=== PATIENT | male | born 1950 | race Asian ===

== ENCOUNTER 2019-07-30 16:53 | Emergency (ER) | payer OTHER ==
[~2019-07-30] VITALS: Ht 175.3 cm; Wt 78.9 kg
[~2019-07-30 16:53] MED LIST: ABILIFY MAINTE400 MG IM; AMANTADINE100 MG PO; ARIPIPRAZOLE15 MG PO; ASEN5SUB2 SL; ATIVAN2 M1 PO; ATIVAN2 MG PO; BENZ1TAB43 PO; BENZONATATE200 MG PO; BENZTROPINE0.5 MG PO; BISACODYL5 M1 PO; BUSP15TAB2 PO; BUSP5TAB2 PO; BUSPIRONE10 MG PO; BUSPIRONE15 MG PO; CALCIUM600 M1 OR; CALCIUM600 M1 PO; DAILY VITE PO; DIAZ5TAB20 PO; DIPH25CA90 PO; DIVA250T2 PO; DIVA500T2 OR; DIVA500T2 PO; DOCU100C10 PO; DONE5TAB PO; ENEMA READY-TO-1 ENE PR; ESCI10TA PO; ESCITALOPRAM5 MG PO; GENTLE LAXAT5 MG PO; GEODON60 MG PO; HALO10TA5 PO; HALO50IN4 IM; HALO5INJ3 IM; HALO5TAB10 PO; LAMICTAL25 MG PO; LEVO0.0723 PO; LEVO0.1T6 PO; LEVO0.2T35 PO; LEXAPRO10 MG PO; LEXAPRO20 MG; LORA1TAB17 PO; LORA2INJ21 INJ; LORAZEPAM2 MG/ML IM; MEMA10TA2 PO; MEMANTINE HCL10 MG PO; MULTI VITAMIN D1 TAB PO; NAC600 M1 PO; OLAN10INJ PO; OLANZAPINE10 M2 PO; OLANZAPINE20 M1 OR; OMEP40CA PO; OXCARBAZEPIN600 MG PO; PRAZ1CAP16 PO; PROPAFENONE150 MG PO; PROTEIN SUPPLEMENT PO; QUET100T2 PO; QUET300T PO; RISP0.25 PO; RISP1TAB PO; RISP2TAB2 PO; RISP50IN IM; RISPERDAL3 MG PO; ROPINIROLE0.5 MG PO; TRAM50TA PO; TRAZ50TA36 PO; TRILEPTAL150 MG PO; TRILEPTAL300 MG OR; TRILEPTAL300 MG PO; VITAMIN D-3400 UNIT PO; VITAMIN D400 UNIT OR; ZIPR20IN IM; ZIPR80CA PO; [UNRECOGNIZED DRUG - CODE] PO; [UNRECOGNIZED DRUG - OTHER] IJ; [UNRECOGNIZED DRUG - OTHER] RE
[2019-07-30 17:02] VITALS: BP 145/88; TEMP 98.4
[2019-07-30 17:36] LABS: PLATELET COUNT 224 K/uL (142-355)
[2019-07-30 17:39] LABS: POTASSIUM 3.7 mmol/L (3.6-5.2)
[2019-07-31] MEDS ORDERED: CLOZAPINE100 MG PO ×2 (01:25→01:37)
[2019-07-31] MEDS ORDERED: ESCITALOPRAM10 MG PO (01:27)
[2019-07-31] MEDS ORDERED: LEVO-T125 MCG PO ×2 (01:28→01:43)
[2019-07-31] MEDS ORDERED: TRAZ50TA36 PO (01:30)
[2019-07-31] MEDS ORDERED: DRONABINOL5 MG PO (01:31)
[2019-07-31] MEDS ORDERED: AMLODIPINE BESYLATE PO (01:32)
[2019-07-31] MEDS ORDERED: EQ LAXATIVE8.6 MG PO (01:35)
[2019-07-31] MEDS ORDERED: LEXAPRO10 MG PO (01:40)
[2019-08-02] MEDS ORDERED: CLOZAPINE ODT150 MG PO (12:38)
== END 2019-07-30 18:53 | disposition other institution (70) ==
LOC: ED 16:53
PROVIDERS: Family Medicine
DX: R45.850 Homicidal ideations (principal); R46.89 Other symptoms and signs involving appearance and behavior; I10 Essential (primary) hypertension; Z04.6 Encounter for general psychiatric examination, requested by authority
CPT/HCPCS: 80053; 81000; 85027; 93005; 99285

== ENCOUNTER 2021-08-22 19:48 | Emergency (ER) | payer OTHER ==
[~2021-08-22] VITALS: Ht 170.2 cm; Wt 82.1 kg
[~2021-08-22 19:48] MED LIST changes: +AMLODIPINE BESYLATE PO; +CHOL100034 PO; +CLOZ100T PO; +CLOZAPINE ODT150 MG PO; +CLOZAPINE100 MG PO; +CYAN10009 IM; +DRONABINOL5 MG PO; +EQ LAXATIVE8.6 MG PO; +ESCITALOPRAM10 MG PO; +LEVO-T125 MCG PO; +OLANZAPINE5 MG PO; +OXCARBAZEPIN300 MG PO
[2021-08-22 20:12] LABS: PLATELET COUNT 246 K/uL (142-355)
[2021-08-22 20:18] LABS: POTASSIUM 3.8 mmol/L (3.6-5.2)
[2021-08-22 20:45] VITALS: BP 158/74; TEMP 98.2
[2021-08-23] MEDS ORDERED: TYLENOL325 MG PO (08:30)
[2021-08-23] MEDS ORDERED: ARIPIPRAZOLE10 MG PO (08:33)
[2021-08-23] MEDS ORDERED: BENZ1TAB43 PO (08:34)
[2021-08-23] MEDS ORDERED: DOK100 MG PO (08:35)
[2021-08-23] MEDS ORDERED: DONEPEZIL HYDROC5 MG PO (08:36)
[2021-08-23] MEDS ORDERED: FE TABS325 MG PO (08:38)
[2021-08-23] MEDS ORDERED: MELATONIN5 M4 PO (08:39)
[2021-08-23] MEDS ORDERED: ESCITALOPRAM5 MG PO (08:39)
[2021-08-23] MEDS ORDERED: MAGNSUS68 PO (08:40)
[2021-08-23] MEDS ORDERED: MIRALAX17 GM PO (08:41)
[2021-08-23] MEDS ORDERED: OXCARBAZEPIN300 MG PO (08:42)
[2021-08-23] MEDS ORDERED: GNP SENNA LAX8.6 MG PO (08:43)
[2021-08-23] MEDS ORDERED: VITAMIN C500 M7 PO (08:45)
== END 2021-08-22 20:45 | disposition still patient (30) ==
LOC: ED 19:48
PROVIDERS: Hospitalist
DX: F25.8 Other schizoaffective disorders (principal); F03.91 Unspecified dementia, unspecified severity, with behavioral disturbance; Z11.52 Encounter for screening for COVID-19; Z04.6 Encounter for general psychiatric examination, requested by authority
CPT/HCPCS: 36415; 80053; 85027; 87635; 93005; 96372; 99283; J1200; J1940; J3486; U0003

== ENCOUNTER 2021-08-24 03:55 | Emergency (ER) | payer OTHER ==
[~2021-08-24] VITALS: Ht 170.2 cm; Wt 79.4 kg
[~2021-08-24 03:55] MED LIST changes: +ARIPIPRAZOLE10 MG PO; +DOK100 MG PO; +DONEPEZIL HYDROC5 MG PO; +FE TABS325 MG PO; +GNP SENNA LAX8.6 MG PO; +MAGNSUS68 PO; +MELATONIN5 M4 PO; +MIRALAX17 GM PO; +TYLENOL325 MG PO; +VITAMIN C500 M7 PO
[2021-08-24 04:00] VITALS: BP 115/72; TEMP 98
== END 2021-08-24 05:40 | disposition still patient (30) ==
LOC: ED 03:55
PROC: 0HQ1XZZ Repair Face Skin, External Approach (ICD-10-PCS; principal; 2021-08-24)
DX: S01.111A Laceration without foreign body of right eyelid and periocular area, initial encounter (principal); F03.91 Unspecified dementia, unspecified severity, with behavioral disturbance; W18.39XA Other fall on same level, initial encounter; Y92.238 Other place in hospital as the place of occurrence of the external cause
CPT/HCPCS: 90715; 99283